=== PATIENT | female | born 1975 | race Caucasian/White ===

== ENCOUNTER 2017-06-08 20:45 | Emergency (ER) | payer OTHER ==
[2017-06-08 20:54] VITALS: BP 111/70; PULSE 87; TEMP 98.4; BMI 33.3
--- NOTE | 2017-06-08 21:02 | PDOC ---
History of Present Illness - General History Source: Patient Exam Limitations: No Limitations - History of Present Illness Initial Comments: 06/08/17 21:03 The patient is a 41 year old female with no significant past medical history who presents to the ED complaining of approximately 3-4 days of sore throat with raspy voice. She states her symptoms began over the weekend with some subsequent improvement. Yesterday, her sore throat became worse again with associated hoarse voice. She states she noticed white spots on her throat, prompting her to come to the ED. She also reports mild associated nonproductive cough. No fever, chills, or diffuse myalgias. No wheezing or SOB. No ear pain or nasal congestion. No nausea, vomiting, or diarrhea. Daughter at home has sick contacts in day care. <Ernestine Beckett - Last Filed: 06/08/17 21:15> <Opal Villafuerte - Last Filed: 06/09/17 01:57> - General Chief Complaint: Sore Throat Stated Complaint: SORE THROAT Time Seen by Provider: 06/08/17 20:49 Past History <Ernestine Beckett - Last Filed: 06/08/17 21:15> - Past Medical History COPD: No Other medical history: HYPEREMESIS GRAVIDARIUM - Immunization History Td Vaccination: Yes Immunization Up to Date: Yes - Suicide/Smoking/Psychosocial Hx Smoking Status: No Smoking History: Never smoked Number of Cigarettes Smoked Daily: 0 Hx Alcohol Use: No Drug/Substance Use Hx: No Substance Use Type: None <Opal Villauferte - Last Filed: 06/09/17 01:57> - Past Medical History Allergies/Adverse Reactions: Allergies Allergy/AdvReac Type Severity Reaction Status Date / Time No Known Allergies Allergy Verified 06/08/17 20:50 Home Medications: Ambulatory Orders Cyanocobalamin/Cobamamide [B-12 5,000 Mcg Sublingual Tab] 1 each SL DAILY Review of Systems - Review of Systems Able to Perform ROS?: Yes Comments:: 06/08/17 21:05 Review of systems is as per HPI and otherwise negative. All Other Systems: Reviewed and Negative <Ernestine Beckett - Last Filed: 06/08/17 21:15> *Physical Exam - Vital Signs Last Vital Signs Temp Pulse Resp BP Pulse Ox 98.4 F 87 16 111/70 99 06/08/17 20:49 06/08/17 20:49 06/08/17 20:49 06/08/17 20:49 06/08/17 20:49 - Physical Exam Comments: 06/08/17 21:15 GENERAL: Awake, alert, and fully oriented, in no acute distress HEAD: No signs of trauma EYES: PERRLA, EOMI, sclera anicteric, conjunctiva clear ENT: +Pharynx is mildly erythematous without exudates or tonsillar edema. Auricles normal inspection, hearing grossly normal, nares patent. Moist mucosa NECK: +Mildly edematous anterior cervical lymph nodes that are nontender bilaterally. Normal ROM, supple, no JVD, or masses LUNGS: Breath sounds equal, clear to auscultation bilaterally. No wheezes, and no crackles HEART: Regular rate and rhythm, normal S1 and S2, no murmurs, rubs or gallops ABDOMEN: Soft, nontender, normoactive bowel sounds. No guarding, no rebound. No masses EXTREMITIES: Normal range of motion, no edema. No clubbing or cyanosis. No cords, erythema, or tenderness NEUROLOGICAL: Cranial nerves II through XII grossly intact. Normal speech, normal gait SKIN: Warm, Dry, normal turgor, no rashes or lesions noted. <Ernestine Beckett - Last Filed: 06/08/17 21:15> - Vital Signs Last Vital Signs Temp Pulse Resp BP Pulse Ox 98.4 F 87 16 111/70 99 06/08/17 20:49 06/08/17 20:49 06/08/17 20:49 06/08/17 20:49 06/08/17 20:49 <Opal Villafuerte - Last Filed: 06/09/17 01:57> Medical Decision Making - Medical Decision Making Documentation has been prepared under my direction and personally reviewed by me in its entirety. I attest that this documented accurately reflects all work, treatment, procedures and medical decision making performed by me. As noted above, this otherwise healthy 41-year-old woman presents with a few day history of sore throat and hoarseness. She is concerned because her child, although well now, is exposed to strep throat at daycare. The patient has not had fever/severe pain or drooling. Exam as noted Quick strep and throat culture sent. Quick strep negative. Patient will be discharged with instructions to continue gargling with warm salt water as needed; she also take Tylenol/Motrin/Aleve as needed for pain. She should return to the ER if she has worsening pain/high fever/shortness of breath She will be contacted if throat culture is positive and antibiotic prescription transmitted to her pharmacy <Opal Villafuerte - Last Filed: 06/09/17 01:57> *DC/Admit/Observation/Transfer - Attestations Scribe Attestion: 06/08/17 21:06 Documentation prepared by Ernestine Beckett, acting as director medical safety for Opal Villafuerte MD. <Ernestine Beckett - Last Filed: 06/08/17 21:15> <Opal Villafuerte - Last Filed: 06/09/17 01:57> Diagnosis at time of Disposition: Acute pharyngitis Qualifiers: Pharyngitis/tonsillitis etiology: unspecified etiology Qualified Code(s): J02.9 - Acute pharyngitis, unspecified - Discharge Dispostion Disposition: HOME Condition at time of disposition: Stable - Referrals Referrals: Senthil Fernandez MD [Primary Care Provider] - - Patient Instructions Printed Discharge Instructions: DI for Pharyngitis/Tonsillopharyngitis -- Adult Additional Instructions: Continue plenty of fluids; rest as best you can Use warm saltwater gargle as needed for discomfort Ibuprofen/acetaminophen/naproxen as needed for pain/fever Return to ER if you have severe pain or develop high fever/shortness of breath Follow-up with your doctor within the next week - Post Discharge Activity
== END 2017-06-08 21:38 | disposition home or self-care (01) ==
LOC: FER 20:45
DX: J02.9 Acute pharyngitis, unspecified (principal)
CPT/HCPCS: 87070; 87430; 99281-25